=== PATIENT | male | born 1945 | race Hispanic/Latino ===

== ENCOUNTER 2016-12-17 11:59 | Outpatient (CLI) | payer MEDICARE, OTHER ==
--- NOTE | 2016-12-17 13:55 | Fluoroscopy Report ---
FLUOROSCOPY UPPER GI WITH KUB INDICATION: Dyspepsia. Lap band issues. COMPARISON: None similar at this institution. FINDINGS: Upper GI performed. Patient swallowed thick and thin barium without any difficulty. [employer] view demonstrates radiographically unremarkable lap band appearance with connector tubing extending towards the right lower quadrant, incompletely imaged. Borderline cardiomegaly. Thoracic and lumbar spondylosis. Esophagus is normal in course and caliber. No focal suspicious lesions. Normal peristalsis. Patent GE junction. First few swallows promptly opacify mid to distal stomach, though gastric fundus nonopacified, containing air. Few subsequent views though also demonstrate contrast opacification of the gastric fundus. Grossly normal imaged duodenum. CONCLUSION: Normal upper GI with only a small portion of the proximal stomach felt excluded. Gastric lap band slippage may also be assessed for clinically and further with limited CT images through this region, if warranted. Also, direct comparison with similar more remote postoperative exams would be very helpful, if available from an outside institution. Thank you for the opportunity to participate in this patient's care.
== END 2016-12-17 12:00 | disposition home or self-care (01) ==
LOC: FLUORO 11:59
PROVIDERS: ATTEND Specialist
DX: K30 Functional dyspepsia (principal); M47.894 Other spondylosis, thoracic region; M47.896 Other spondylosis, lumbar region
CPT/HCPCS: 74247